=== PATIENT | female | born 1955 | race Caucasian/White ===

== ENCOUNTER → 2018-01-08 | Outpatient (CLI) | payer BC ==
[~2018-01-08] MED LIST: ACAI BERRY PO; ASPIR 8181 MG PO; BENTYL10 MG PO; CALCIUM PO; CRANBERRY PO; EVISTA60 MG PO; FISH OIL 1,0001 EAC1 PO; LISINOPRIL10 MG PO; MULTIVITAMIN PO; OCUVITE PO; PANTOPRAZOLE SO40 MG PO
--- NOTE | 2018-01-08 14:34 | Diagnostic Imaging Report ---
PROCEDURE: X-RAY MODIFIED BARIUM SWALLOW COMPARISON: None. INDICATION: Dysphagia DISCUSSION: Fluoroscopic examination was performed in conjunction with speech pathology during swallowing a variety of thin and thick liquid consistencies. CONCLUSION: Mild penetration is noted to the level of the vocal cords which cleared on subsequent views. No evidence of aspiration. Please refer to the speech pathology report for further details. Signed by: Dr. Bird Kothari MD on 01/08/2018 2:31 PM
== END ==
LOC: DX 08:55
PROVIDERS: ATTEND Internal Medicine Gastroenterology
DX: R13.10 Dysphagia, unspecified (principal)
CPT/HCPCS: 74230